=== PATIENT | male | born 1940 | race Caucasian/White ===

== ENCOUNTER 2024-05-20 10:35 | Emergency (ER) | payer OTHER, SELFPAY ==
[2024-05-20 10:39] VITALS: BP 113/73
--- NOTE | 2024-05-20 11:44 | ED.GENMED ---
History of Present Illness
General
Chief Complaint: Cough
Time Seen by Provider: 05/20/24 11:11
History of Present Illness
History of Present Illness:
Patient is a 83-year-old male with history of hypertension, hyperlipidemia presenting to the emergency department with a cough. Patient states that about a week ago he went to an urgent care for cough was given doxycycline as well as Tessalon
Perles with no relief in his symptoms. He had a chest x-ray did not show any pneumonia. He was told that there could be a lung disease and was to follow-up with outpatient CT scan.. He states that he has been having some congestion runny nose.
The cough is productive. No fevers. No chest pain. No shortness of breath. No recent sick contacts. He has not tried any decongestants or steam.
Past History
Past History
ED Past Medical History: None
ED Past Surgical History: None
Phy Exam
Physical Exam
Physical Exam:
GENERAL: in no acute distress
HEENT: normocephalic, extraocular movements intact, moist oral mucosa
NECK: normal inspection
RESPIRATORY: no respiratory distress, clear to auscultation bilaterally
CARDIOVASCULAR: regular rate and rhythm
ABDOMEN/: soft, non-distended, non-tender to palpation, no rebound or guarding
EXTREMITIES: non-tender, no edema/swelling
NEUROLOGIC: awake and alert, moves all extremities
SKIN: warm
Course
Orders/Labs/Results
Orders:
Orders
05/20/24 11:31
CR Chest - 2 Views Urgent
Comment:
Reason For Exam: cough
05/20/24 12:02
COVID-19 Antigen Urgent
Source: Nasal Swab
Influenza A+B Rapid Molecular Urgent
DEANA Source: Nasal Swab
Specimen Description:
Vital Signs
Initial and Last Documented VS:
Initial Vital Signs
Temp Pulse Resp BP Pulse Ox
98.4 F 83 18 113/73 95
05/20/24 10:39 05/20/24 10:39 05/20/24 10:39 05/20/24 10:39 05/20/24 10:39
Last Documented Vital Signs
Temp Pulse Resp BP Pulse Ox
98.4 F 74 18 103/68 96
05/20/24 10:39 05/20/24 11:56 05/20/24 11:56 05/20/24 11:56 05/20/24 11:56
MDM/Problems Addressed
Differential Diagnosis Includes:
Patient is a 83-year-old man presenting to the emergency department with a cough for the past week. Vitals are unremarkable and exam is reassuring. Certainly could be viral versus pneumonia. Will check COVID flu swab. Will obtain chest x-ray.
Patient advised on using honey decongestant such as Mucinex as well as steam for symptomatic relief. We did discuss obtaining a CT scan of the chest as it was advised at urgent care however after shared decision making patient. Will hold off.
*Critical Care Note
Total Time (30-74mins, 75-104mins- exclusive of procedures): Not Applicable
Update Note
Update Note:
Chest x-ray per my interpretation with peripheral lungs with increased interstitial markings. 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 I did discuss with pulmonology. They recommended outpatient follow-up.
No medications at this time. All questions answered. Will discharge at this time.
ED Attending Note
-
Portions of this chart may have been created with voice recognition software.� Occasional wrong word or��sound alike� substitutions may have occurred due to the inherent limitations of voice recognition software.
Discharge Plan
Departure
Patient Disposition: Home (Routine Discharge)
Date of Disposition: 05/20/24
Time of Disposition: 12:34
Patient with high blood pressure during this ER visit?: No
Discharge Problem:
Interstitial pneumonitis
Referrals:
Juan Luis Sin MD [Active] -
Juanjose Kerr MD [Family Provider] -
Interventions
Interventions:
*Risk Screen - Suicide Last Done: 05/20/24 10:39
*General Assessment Last Done: 05/20/24 10:39
*Neglect/Abuse Screening Last Done: 05/20/24 10:39
ED- Pulmonary Assessment Last Done: 05/20/24 11:56
Discharge Date and Time
Print Language: JORDANIAN
[2024-05-20 11:56] VITALS: BP 103/68
[2024-05-20 12:47] LABS: COVID-19 Antigen Negative (Negative)
[2024-05-20 12:53] VITALS: BP 114/69
== END 2024-05-20 12:56 | disposition home or self-care (01) ==
LOC: EMR 10:35
PROVIDERS: EMERGENCY PHYSICIAN Student in an Organized Health Care Education/Training Program; FAMILY PHYSICIAN Internal Medicine
DX: R09.89 Other specified symptoms and signs involving the circulatory and respiratory systems (principal); J84.89 Other specified interstitial pulmonary diseases; Z11.52 Encounter for screening for COVID-19; I10 Essential (primary) hypertension; E78.5 Hyperlipidemia, unspecified
CPT/HCPCS: 99283; 71046; 87502; 87811

== ENCOUNTER 2024-05-26 13:55 | Inpatient (IN) | payer OTHER, SELFPAY ==
[2024-05-26] VITALS (14 sets, daily range): BP systolic 99–132; BP diastolic 59–94; BMI 25.1; BMI 24.4
[2024-05-26 09:26] LABS: % Basophils 0.2 % (0-2); % Immature Granulocytes 0.6 % (0-0.5); % Lymphocytes 4.6 % (20.5-51.1); % Monocytes 4.5 % (1.7-9.3); % Neutrophils 90.1 % (42.2-75.2); Absolute Immature Granulocytes 0.1 10^3/uL (0-0.05); Absolute Lymphocytes 0.8 10^3/uL (1.2-3.4); Absolute Monocytes 0.8 10^3/uL (0.1-0.6); Absolute Neutrophils 15.8 10^3/uL (1.4-6.5); Hematocrit 43.9 % (39.0-52.0); Mean Corp Hgb Conc. 34.2 g/dL (33.0-37.0); Mean Corpuscular Hgb 29.4 pg (27.0-31.0); Mean Corpuscular Volume 86.1 fL (80.0-94.0); Nucleated Red Blood Cells % 0 % (-); Platelet Count 205 10^3/uL (130-400); Red Cell Dist. Width 12.7 % (11.5-14.5); White Blood Cell Count 17.5 10^3/uL (4.8-10.8)
[2024-05-26 09:39] LABS: ALT (SGPT) 21 U/L (0-50); AST (SGOT) 26 U/L (17-59); Albumin 4.1 g/dl (3.5-5.0); Alkaline Phosphatase 81 U/L (38-126); Blood Urea Nitrogen 35 mg/dl (9-20); Carbon Dioxide 25 mmol/L (22-30); Chloride 102 mmol/L (98-107); Glucose 148 mg/dl (70-99); Potassium 4.3 mmol/L (3.5-5.1); Sodium 138 mmol/L (135-145); Total Bilirubin 1.2 mg/dl (0.2-1.3); Total Protein 6.5 g/dl (6.3-8.2); eGFR 54.17
[2024-05-26 09:54] LABS: NT-proBNP 386 pg/ml; Troponin I 0.081 ng/ml
--- NOTE | 2024-05-26 11:33 | ED.GENMED ---
History of Present Illness
General
Chief Complaint: Breathing Problem
Source: patient, records and family
Time Seen by Provider: 05/26/24 10:24
History of Present Illness
History of Present Illness:
83-year-old male with past medical history of hypertension hyperlipidemia presenting the emergency department for reevaluation after being seen here 1 week ago for worsening cough and congestion, that initially caused patient to go to an urgent care
where he was prescribed doxycycline and Tessalon Perles but was taking this without any relief. Patient came to the ER last week where he had chest x-ray, COVID and flu testing done with the chest x-ray showing patient had moderate to severe
inflammatory interstitial pneumonitis, pulmonary was consulted at the time and recommended patient follow-up in the office as an outpatient which the patient was able to get scheduled for June 06. Patient states this morning he felt as he had
increased congestion and a fever with a Tmax of 100.6 he decided to come to the ER although he does note presently that his congestion seems to be resolved.
Past History
Past History
ED Past Medical History: HTN and Hypercholesterolemia
ED Past Surgical History: Appendectomy and Urological
Social History
Tobacco: Former smoker
Alcohol: None
Drug: None
Living: with family
Review of Systems
Review of Systems
All Other Systems: ROS reviewed and negative except as documented in HPI and ROS
Phy Exam
Physical Exam
Physical Exam:
GENERAL: Alert , in no apparent distress
EYE: conjunctiva clear
NECK: Supple
ENT: o/p clr, mmm.
CARDIAC: Regular rate and rhythm
LUNGS: Clear breath sounds bilaterally, no acute respiratory distress, no wheezes/rales/rhonchi
NEUROLOGICAL: Alert and oriented
SKIN: Warm and dry, skin intact.
MUSCULOSKELETAL: well perfused.
PSYCH: Normal and appropriate interaction.
Scores
Heart Failure Risk
Heart Failure Risk Score: Not Applicable
Heart Score for Chest Pain Patients
STEMI patient?: Not applicable
Withdrawal Assessment of Alcohol
Withdrawal Assessment Completed?: Not applicable
Sepsis
Sepsis Screening
Sepsis Assessment: Sepsis
Sepsis Screen
Sepsis Screen: Sepsis
Date: 05/26/24
Time: 13:12
Course
Orders/Labs/Results
Orders:
Orders
05/26/24 09:07
ECG [Electrocardiogram (*1)] Urgent
Reason for Study: Shortness of Breath
EKG- Treatment ONCE
05/26/24 09:16
Complete Blood Count/With Diff Urgent
Comprehensive Metabolic Panel Urgent
Pro-BNP [NT-proBNP] Urgent
Troponin I Urgent
05/26/24 10:33
CT Chest PE Study Urgent
Comment:
Reason For Exam: worsening SOB, cough
05/26/24 12:06
Cefepime HCl [Maxipime] 2,000 mg IV NOW STA
05/26/24 12:12
MethylPREDNISolone PF [Solu-Medrol Pf] 60 mg IV NOW STA
05/26/24 12:17
MethylPREDNISolone PF [Solu-Medrol Pf] 40 mg IV NOW STA
05/26/24 12:30
Lactic Acid Q4H
Comment: CANCEL 2nd LACTIC ACID IF 1st LACTIC ACID IS LESS THAN 2
Procalcitonin Routine
PCT Algorithmm Indication: Respiratory
Blood Culture Q30M
DEANA Source: Blood/Venous
Specimen Description:
Blood Culture Q30M
DEANA Source: Blood/Venous
Specimen Description:
05/26/24 16:15
Lactic Acid Q4H
Comment: CANCEL 2nd LACTIC ACID IF 1st LACTIC ACID IS LESS THAN 2
Abnormal Lab Results
05/26/24
09:16
WBC 17.5 H 10^3/uL
(4.8-10.8)
Abs Immat Gran (auto) 0.1 H 10^3/uL
(0-0.05)
Absolute Neuts (auto) 15.8 H 10^3/uL
(1.4-6.5)
Absolute Lymphs (auto) 0.8 L 10^3/uL
(1.2-3.4)
Absolute Monos (auto) 0.8 H 10^3/uL
(0.1-0.6)
Immature Gran % 0.6 H %
(0-0.5)
Neutrophils % 90.1 H %
(42.2-75.2)
Lymphocytes % 4.6 L %
(20.5-51.1)
BUN 35 H mg/dl
(9-20)
Glucose 148 H mg/dl
(70-99)
Troponin I 0.081 H* ng/ml
05/26/24 09:16
05/26/24 09:16
Vital Signs
Initial and Last Documented VS:
Initial Vital Signs
Temp Pulse Resp BP Pulse Ox
98.6 F 108 24 111/69 93
05/26/24 09:02 05/26/24 09:02 05/26/24 09:02 05/26/24 09:02 05/26/24 09:02
Last Documented Vital Signs
Temp Pulse Resp BP Pulse Ox
98.5 F 89 20 105/59 96
05/26/24 10:34 05/26/24 12:51 05/26/24 12:51 05/26/24 12:51 05/26/24 12:51
MDM/Problems Addressed
Differential Diagnosis Includes:
Continued exacerbation of pulmonary pneumonitis, pulmonary embolism, COVID/flu, pneumonia, other viral etiology
MDM/Problems Addressed:
83-year-old male presenting to the emergency department for evaluation of continued cough and chest/nasal congestion that has been ongoing for the last few weeks, no relief with doxycycline and Tessalon Perles. Had chest x-ray done a week ago
showing moderate to severe pulmonary interstitial pneumonitis and has an outpatient appointment scheduled for early May. No fever here and patient did not take any antipyretics prior to arrival. Labs were initiated in triage which does show a
slightly elevated troponin although there is no ischemic changes on his EKG. BNP is within normal limits. CTA of the chest ordered for further evaluation.
*Radiology
Radiology exam reviewed: radiology read reviewed
*Pulse Oximetry
Patient hypoxic: no
*EKG
Heart Rate: 98
Rate: normal
Rhythm: sinus
Interval: first degree heart block
*Bolt Header Interpretation
Rate: normal
Rhythm: sinus
*Critical Care Note
Total Time (30-74mins, 75-104mins- exclusive of procedures): Not Applicable
Data Reviewed
Review of Other/Old Records Reveals: Records and Radiology Studies
Source: patient and records
Patient Management
Discussion with other providers: Hospitalist and Doors Prefitter
Escalation/DeEscalation of care consider admission/obs:
Patient CT scan shows significant left upper and lower lung pneumonia in addition to the already known interstitial pneumonitis findings. Upon returning from CT scan patient's pulse ox did drop to 90% on room air so he was placed on 2 L via nasal
cannula for comfort. Due to multiple visits to the ER as well as the hypoxia and abnormal CT findings I did discuss the case with pulmonary who agrees patient should be admitted with IV antibiotics and is okay with patient receiving Solu-Medrol 40
mg every 8 hours IV. Hospitalist team is aware and accepts for continued evaluation and treatment.
ED Attending Note
-
Portions of this chart may have been created with voice recognition software.� Occasional wrong word or��sound alike� substitutions may have occurred due to the inherent limitations of voice recognition software.
Discharge Plan
Departure
Patient Disposition: Admit
Date of Disposition: 05/26/24
Time of Disposition: 12:18
Presentation/result/management discussed w/ accepting MD/DO: Hospitalist
Discharge Problem:
Pneumonia, Pneumonitis
Prescriptions:
No Action
amlodipine-benazepril 10-20 mg Capsule
1 cap PO DAILY
simvastatin [Zocor] 20 mg Tablet
20 mg PO HS
docusate sodium [Colace] 100 mg Capsule
100 mg PO DAILY
famotidine [Pepcid] 20 mg Tablet
20 mg PO DAILY
Referrals:
Unique Kerr CRNP [Family Provider] -
Interventions
Interventions:
*Risk Screen - Suicide Last Done: 05/26/24 10:34
*General Assessment Last Done: 05/26/24 10:34
*Neglect/Abuse Screening Last Done: 05/26/24 10:34
*ED- Fall Risk Assessment Last Done: 05/26/24 10:34
*ED COVID-19 Vaccine History Last Done: 05/26/24 10:34
ED- Cardiac Assessment Last Done: 05/26/24 10:34
ED- Pulmonary Assessment Last Done: 05/26/24 10:34
Discharge Date and Time
Print Language: TAMAZIGHT
--- NOTE | 2024-05-26 12:13 | EDRN ---
this RN noticed that the pts Sp02 dipped to 90%, this RN notified the provider Everett GONSALEZ and placed the pt on 3L NC, Sp02 now 95%, Everett GONSALEZ currently at the pts bedside
[2024-05-26] MEDS: MAXIPIME 2000 MG IV (12:30)
[2024-05-26] MEDS: SOLU-MEDROL PF 40 MG IV (12:30)
--- NOTE | 2024-05-26 12:32 | HPS.HSE ---
Family Physician
-
Family Physician: JENNY Griffith
Chief Complaint
-
sob
History of Present Illness
Patient 83 years old male with history hypertension, hyperlipidemia, GERD, came into the hospital cough and shortness of breath. Patient has been experiencing runny nose, cough, shortness of breath for over 3 weeks. He was in urgent care and also
the ER and x-rays had shown interstitial pneumonitis and was recommended to follow-up with pulmonary as outpatient. Patient continues to feel ill and having fevers and chills. This morning his temperature was up to 100.6 Fahrenheit. He continues
to have cough with white sputum production, increased congestion, and shortness of breath. Here in the ER he had a CT of the chest negative for PE but shows evidence of pneumonia in the left lung and also evidence of interstitial lung disease. In
terms of sick contacts he tells me he lives in a senior community and a lot of people have been sick lately. He was given supplemental oxygen and he was given broad-spectrum IV antibiotics. He was referred to hospitalist service for further
evaluation.
Medical History
Past Medical History
Past Medical History: Reports Other (Hypertension, hyperlipidemia.)
Past Surgical History: Reports None
Social History
Tobacco: Former Smoker
Alcohol: None
Drug: None
Family History
Family History: Not pertinent
Allergies / Home Medications
Allergies reflects when Allergies were last updated in [facility].
Home Medications with original date entered in [facility]
Allergy/Medication List:
Allergies
Allergy/AdvReac Type Severity Reaction Status Date / Time
No Known Allergies Allergy Verified 05/20/24 10:39
Home Medications
amlodipine 10 mg-benazepril 20 mg capsule 1 cap PO DAILY 05/26/24
docusate sodium 100 mg capsule (Colace) 100 mg PO DAILY 05/26/24
famotidine 20 mg tablet (Pepcid) 20 mg PO DAILY 05/26/24
simvastatin 20 mg tablet (Zocor) 20 mg PO HS 05/26/24
Review of Systems
-
A 12 point ROS was completed and negative except as noted: Yes
Physical Exam
Vital Signs
Vital Signs
Temp Pulse Resp BP Pulse Ox
98.5 F 88 23 105/59 91
05/26/24 10:34 05/26/24 12:00 05/26/24 12:00 05/26/24 12:00 05/26/24 12:00
Physical exam:
General: Acutely ill
HEENT: Normocephalic, Atraumatic and Moist Mucous Membranes
Respiratory: Bilateral coarse crackles and rhonchi; Negative Wheezes
Cardiac: Regular Rhythm and S1/S2
GI: Soft, Nontender and Nondistended
Musculoskeletal: No Clubbing, No Cyanosis and No Edema
Neuro: Awake, Alert and Oriented
Psych: Calm
Physical Exam
General: Other
Laboratory Results
-
05/26/24 09:16
05/26/24 09:16
Laboratory Results
Total Bilirubin 1.2 mg/dl (0.2-1.3) 05/26/24 09:16
AST 26 U/L (17-59) 05/26/24 09:16
ALT 21 U/L (0-50) 05/26/24 09:16
Alkaline Phosphatase 81 U/L (38-126) 05/26/24 09:16
Troponin I 0.081 ng/ml H* 05/26/24 09:16
Data Reviewed
-
CT Scan: Image Personally Visualized and interpreted
Lab Data: Labs Reviewed by me
Impression/Plan
-
IMPRESSION:
Patient 83 years old male with history of hypertension hyperlipidemia came into the hospital cough and shortness of breath. CT of the chest negative for PE but consistent with pneumonia and ILD. Patient increased risk of morbidity mortality due to
acute presentation and comorbidities therefore he will need to be treated in the hospital and monitor accordingly.
PLAN:
Acute respiratory insufficiency:
Oxygen supplementation
Bronchodilators as needed
Pneumonia:
Continue IV antibiotics
Would treat as community-acquired pneumonia with IV Rocephin and azithromycin (QTc 423 on EKG)
Sputum culture
Strep and Legionella antigen
ILD:
Start IV steroids, Dexa 4 mg IV q 8 hrs
Bronchodilators as needed
Would keep pulmonary referral as outpatient-discussed with patient and daughter at bedside.
Hypertension:
Continue amlodipine and benazepril
Monitor blood pressure and adjust medications accordingly
Hyperlipidemia:
Continue simvastatin 20 mg p.o. nightly
GERD:
Continue famotidine 20 mg p.o. daily
DVT prophylaxis:
Lovenox SQ
CODE STATUS:
DNR-confirmed with patient and family at bedside
Time spent 75 minutes
--- NOTE | 2024-05-26 12:51 | EDRN ---
hospitalist currently at the pts bedside
[2024-05-26 13:12] LABS: Procalcitonin 0.68 ng/ml (0.0-0.25)
[2024-05-26 14:58] LABS: Glucose - Point of Care 139 mg/dl (70-99)
--- NOTE | 2024-05-26 15:29 | EDRN ---
this RN called the receiving unit and notified them that paper report was going to be tubed up
[2024-05-26] MEDS: ZITHROMAX INFUSION 250 IV (16:42)
[2024-05-26] MEDS: LOVENOX 40 MG SC (18:42)
[2024-05-26] MEDS: DECADRON 4 MG IV (18:42)
--- NOTE | 2024-05-26 19:53 | PTCARENOTE ---
Recieved Pt from ED. AAOX3, VSS WNL, Oriented to unit.
[2024-05-26] MEDS: LIPITOR 10 MG PO (21:00)
[2024-05-27] VITALS (7 sets, daily range): BP systolic 97–115; BP diastolic 49–64; PULSE 84; O2SAT 94
[2024-05-27] MEDS: DECADRON 4 MG IV ×3 (01:41→17:37)
[2024-05-27 06:33] LABS: % Basophils 0.1 % (0-2); % Immature Granulocytes 0.7 % (0-0.5); % Lymphocytes 7.9 % (20.5-51.1); % Monocytes 1.4 % (1.7-9.3); % Neutrophils 89.9 % (42.2-75.2); Absolute Immature Granulocytes 0.1 10^3/uL (0-0.05); Absolute Lymphocytes 1.1 10^3/uL (1.2-3.4); Absolute Monocytes 0.2 10^3/uL (0.1-0.6); Absolute Neutrophils 12.4 10^3/uL (1.4-6.5); Hemoglobin 13.3 g/dL (13.0-18.0); Mean Corp Hgb Conc. 34.1 g/dL (33.0-37.0); Mean Corpuscular Hgb 29.5 pg (27.0-31.0); Mean Corpuscular Volume 86.5 fL (80.0-94.0); Mean Platelet Volume 9.6 fL (7.4-10.4); Nucleated Red Blood Cells % 0 % (-); Platelet Count 202 10^3/uL (130-400); Red Blood Cell Count 4.51 10^6/uL (4.70-6.10); Red Cell Dist. Width 12.8 % (11.5-14.5); White Blood Cell Count 13.8 10^3/uL (4.8-10.8)
[2024-05-27 07:10] LABS: Blood Urea Nitrogen 35 mg/dl (9-20); Carbon Dioxide 27 mmol/L (22-30); Chloride 105 mmol/L (98-107); Estimated Creatinine Clearance 47 ml/min; Glucose 198 mg/dl (70-99); Sodium 139 mmol/L (135-145); eGFR 59.63
[2024-05-27] MEDS: LOTREL 10 MG/20 MG 1 CAPSULE PO (08:46)
[2024-05-27] MEDS: COLACE 100 MG PO (08:46)
[2024-05-27] MEDS: STERILE WATER FOR INJECTION 10 ML IV (08:47)
[2024-05-27] MEDS: ROCEPHIN 1000 MG IV (08:47)
[2024-05-27] MEDS: PEPCID 20 MG PO (08:47)
--- NOTE | 2024-05-27 10:07 | W.PN.HOSP.TC ---
Today's Communication/Plan
-
see A/P
Assessment / Plan
Assessment / Plan
HPI: 83 year old male with history hypertension, hyperlipidemia, GERD, came into the hospital with cough and shortness of breath. Patient has been experiencing runny nose, cough, shortness of breath for over 3 weeks. He was in urgent care and also
the ER and x-rays had shown interstitial pneumonitis and was recommended to follow-up with pulmonary as outpatient. Patient continues to feel ill with fevers and chills (temperature was up to 100.6 Fahrenheit). He continues to have cough with
white sputum production, increased congestion, and shortness of breath.
Here in the ER he had a CT of the chest negative for PE but shows evidence of pneumonia in the left lung and also evidence of interstitial lung disease.
He lives in a senior community and a lot of people have been sick lately. He was given supplemental oxygen and he was given broad-spectrum IV antibiotics.
A/P:
# Acute respiratory insufficiency
Placed on 2L NC, cont and wean as tolerated
Bronchodilators as needed
# CAP
CT chest noted left upper lobe and left lower lobe increasing parenchymal opacity
Continue IV antibiotics with IV Rocephin and azithromycin
Check MRSA screen
Follow Sputum culture, blood cultures
Strep and Legionella antigens negative
COVID/Flu negative
# ILD:
Started IV steroids, Dexa 4 mg IV q 8 hrs, cont
Bronchodilators as needed
Would keep pulmonary referral as outpatient
# Hypertension:
Continue amlodipine and benazepril with holding parameter
Monitor blood pressure and adjust medications accordingly
# Hyperlipidemia:
Continue simvastatin 20 mg p.o. nightly
# GERD:
Continue famotidine 20 mg p.o. daily
DVT prophylaxis: Lovenox SQ
CODE STATUS: DNR-confirmed with patient and family at bedside
DW son at bedside
DW RN
total time spent 51 min
Anticipated Discharge: 24 - 48 hours
Subjective/Interval History
-
Date of Service: May 27, 2024
Objective Data
-
Labs:
Laboratory Results
05/27/24
05:47
WBC 13.8 H
Hgb 13.3
Hct 39.0
Plt Count 202
Sodium 139
Potassium 5.0
Chloride 105
Carbon Dioxide 27
BUN 35 H
Creatinine 1.2
Glucose 198 H
Calcium 9.0
Vital Signs:
Vital Signs
Temp Pulse Resp BP Pulse Ox
36.4 C 73 18 115/61 97
05/27/24 07:00 05/27/24 08:46 05/27/24 07:00 05/27/24 08:46 05/27/24 07:00
I&O
05/26/24 05/27/24 05/28/24
06:59 06:59 06:59
Intake Total 720 / 720
Balance 720 / 720
Review of Systems
-
History Source: Patient
Respiratory: Reports Other (congestion )
Physical Exam
-
General: Well Developed, Well Nourished, Comfortable, Respiratory Distress (mild) and Conversant
HEENT: Normocephalic, Atraumatic, Nose Appears Normal, Ears Appear Normal and Oxygen (2L NC)
Respiratory: Clear to Auscultation and Non Labored Respirations; Negative Wheezes or Accessory Resp Muscle Use
Cardiac: Regular Rhythm and S1/S2
GI: Soft, Nontender, Nondistended and Normal Bowel Sounds
Skin: Warm and Dry
Neuro: Awake, Alert, Oriented and AO x 3
Psych: Calm and Intact Judgement/Insight
Data Reviewed
-
CT Scan: Report Reviewed by me
Labs: Labs Reviewed by me
[2024-05-27] MEDS: ZITHROMAX INFUSION 250 IV (14:31)
--- NOTE | 2024-05-27 17:15 | CM ---
Alert awake oriented patient who lives alone in a 1 story home with 1 step to enter. He is independent in driving and in all activities of daily living.He was offered VN he declined need.
No VN hx / No SNF history
Pharmacy [facility]
PCP DR Kerr
PLAN Home Declined VN
[2024-05-27] MEDS: LOVENOX 40 MG SC (17:36)
[2024-05-27] MEDS: LIPITOR 10 MG PO (20:34)
[2024-05-28] MEDS: DECADRON 4 MG IV ×2 (02:21→09:50)
[2024-05-28 03:08] VITALS: BP 103/60
[2024-05-28 07:41] VITALS: BP 107/66
[2024-05-28 08:13] LABS: Hematocrit 41.5 % (39.0-52.0); Mean Corp Hgb Conc. 33.7 g/dL (33.0-37.0); Mean Corpuscular Volume 85.9 fL (80.0-94.0); Mean Platelet Volume 9.6 fL (7.4-10.4); Platelet Count 219 10^3/uL (130-400); Red Blood Cell Count 4.83 10^6/uL (4.70-6.10); White Blood Cell Count 15.2 10^3/uL (4.8-10.8)
[2024-05-28 08:38] LABS: Blood Urea Nitrogen 44 mg/dl (9-20); Calcium 9.1 mg/dl (8.4-10.2); Carbon Dioxide 26 mmol/L (22-30); Chloride 105 mmol/L (98-107); Estimated Creatinine Clearance 46 ml/min; Glucose 185 mg/dl (70-99); Magnesium 2.5 mg/dl (1.6-2.3); Potassium 4.2 mmol/L (3.5-5.1); Sodium 138 mmol/L (135-145); eGFR 59.26
[2024-05-28 08:41] VITALS: BP 107/66
[2024-05-28] MEDS: STERILE WATER FOR INJECTION 10 ML IV (08:43)
[2024-05-28] MEDS: ROCEPHIN 1000 MG IV (08:43)
[2024-05-28] MEDS: PEPCID 20 MG PO (08:43)
[2024-05-28] MEDS: LOTREL 10 MG/20 MG PO (08:43)
[2024-05-28] MEDS: COLACE 100 MG PO (08:43)
--- NOTE | 2024-05-28 09:21 | PN.CDI ---
CDI
- -
CDI:
Physician Documentation Request
Admit Date: 05/26/24 13:55
Dear Doctor Gaby,
Patient admitted for pneumonia.
ER Physician Documentation: 'a fever with a Tmax of 100.6'
Laboratory Tests
05/26/24 05/27/24
09:16 05:47
WBC 17.5 H 13.8 H
05/26/24
09:02 05/26/24
10:33 05/26/24
12:15
Pulse 108 93 92
05/26/24
09:02 05/26/24
12:00 05/26/24
12:45
Resp Rate 24 23 21
Please clarify which of the following most accurately describes the status of the patient's infection:
Sepsis, POA
- Systemic manifestations of infection, with 2 or more SIRS criteria which include:
- Fever >100.4 degrees F or hypothermia < 96.8 degrees F
- Leukocytosis - WBC > 12,000 or leukopenia - WBC < 4,000 or > 10% bands
- Tachycardia > 90 beats per minute
- Tachypnea - RR > 20 breaths per minute or PaCO2 , 32mmHg
Source: Merck Manual 2013
- Indicate the known or suspected organism
- Indicate the known or suspected underlying infection, such as pneumonia
- Indicate if a suspected bacterial infection of unknown source
- Indicate if associated with an implanted device such as a F/C, PICC line, orthopedic hardware, etc.
Localized Infection Only, Without Systemic Illness
- indicate the site/source, such as UTI, pneumonia etc.
Other
Use of terms such as suspected, likely, concern for, or probable (associated with a specific diagnosis that is being evaluated, monitored, or treated as if it exists) are acceptable and can be coded in the inpatient setting, when documented at the
time of discharge.
Thank you,
Shelby Roldan RN, BSN
CDI Specialist
Available via [facility] text
Please use your independent medical judgment in providing your response.
--- NOTE | 2024-05-28 10:12 | W.PN.HOSP.TC ---
Addendum entered and electronically signed by Teresa Griffin MD 05/28/24 13:30:
total DC time 38 min
Addendum entered and electronically signed by Teresa Griffin MD 05/28/24 12:53:
# Sepsis, POA
Original Note:
Today's Communication/Plan
-
DC today
Assessment / Plan
Assessment / Plan
HPI: 83 year old male with history hypertension, hyperlipidemia, GERD, came into the hospital with cough and shortness of breath. Patient has been experiencing runny nose, cough, shortness of breath for over 3 weeks. He was in urgent care and also
the ER and x-rays had shown interstitial pneumonitis and was recommended to follow-up with pulmonary as outpatient. Patient continues to feel ill with fevers and chills (temperature was up to 100.6 Fahrenheit). He continues to have cough with
white sputum production, increased congestion, and shortness of breath.
Here in the ER he had a CT of the chest negative for PE but shows evidence of pneumonia in the left lung and also evidence of interstitial lung disease.
He lives in a senior community and a lot of people have been sick lately. He was given supplemental oxygen and he was given broad-spectrum IV antibiotics.
A/P:
# Acute respiratory insufficiency, resolved
Placed on 2L NC, cont and wean as tolerated
Bronchodilators as needed
# CAP
CT chest noted left upper lobe and left lower lobe increasing parenchymal opacity
IV antibiotics IV Rocephin and azithromycin -> PO cefdinir and doxycycline for 3 more days
Check MRSA screen
blood cultures so far negative
Check sputum culture if able
Strep and Legionella antigens are negative, COVID/Flu negative
# ILD:
IV steroid Dexa 4 mg IV q 8 h -> prednisone taper outpatient
Bronchodilators as needed
Would keep pulmonary referral as outpatient
# Hypertension:
Continue amlodipine and benazepril with holding parameter
Monitor blood pressure and adjust medications accordingly
# Hyperlipidemia:
Continue simvastatin 20 mg p.o. nightly
# GERD:
Continue famotidine 20 mg p.o. daily
DVT prophylaxis: Lovenox SQ
CODE STATUS: DNR-confirmed with patient and family at bedside
Dispo: PT indicates no need
Anticipated Discharge: Today
Subjective/Interval History
-
Date of Service: May 28, 2024
Objective Data
-
Labs:
Laboratory Results
05/28/24
07:27
WBC 15.2 H
Hgb 14.0
Hct 41.5
Plt Count 219
Sodium 138
Potassium 4.2
Chloride 105
Carbon Dioxide 26
BUN 44 H
Creatinine 1.2
Glucose 185 H
Calcium 9.1
Vital Signs:
Vital Signs
Temp Pulse Resp BP Pulse Ox
36.7 C 75 20 107/66 97
05/28/24 07:41 05/28/24 08:43 05/28/24 07:41 05/28/24 08:43 05/28/24 07:41
I&O
05/27/24 05/28/24 05/29/24
06:59 06:59 06:59
Intake Total 720 / 720 180 / 180
Balance 720 / 720 180 / 180
Review of Systems
-
History Source: Patient
All other systems: Reviewed and negative
Physical Exam
-
General: Well Developed, Well Nourished, No Apparent Distress, Comfortable and Conversant
HEENT: Normocephalic, Atraumatic, Nose Appears Normal and Ears Appear Normal; Negative Oxygen
Respiratory: Clear to Auscultation and Non Labored Respirations; Negative Wheezes or Accessory Resp Muscle Use
Cardiac: Regular Rhythm and S1/S2
GI: Soft, Nontender, Nondistended and Normal Bowel Sounds
Skin: Warm and Dry
Neuro: Awake, Alert, Oriented and AO x 3
Psych: Calm and Intact Judgement/Insight
Data Reviewed
-
CT Scan: Report Reviewed by me
Labs: Labs Reviewed by me
[2024-05-28 11:09] VITALS: BP 116/74
--- NOTE | 2024-05-28 12:00 | CM ---
MD entered order for discharge.
Spoke with pt he said he was ready for discharge.
His son Nba will drive him home today .
Offered VN he picked [facility] . Liaison Antonio kaye notified of referral .
PLAN Home with [facility]
--- NOTE | 2024-05-28 12:54 | W.DCSUMMARY ---
Discharge Summary
Discharge Data
Date of Admission: 05/26/24
Date of Discharge: 05/28/24
-
Pending Results: No
Hospital Course
Principal Diagnosis:
Community-acquired pneumonia (CAP)
Resolved acute hypoxic respiratory insufficiency
Chronic Diagnoses:�
Interstitial lung disease
Hypertension
Hyperlipidemia on simvastatin
GERD
Consultations:�
None
Procedures:�
None
Clinical course:�
This is a 83 year old male with past medical history as stated above who presented with cough, shortness of breath and fever.
Problem 1:
CAP.
His CT chest noted left upper lobe and left lower lobe increasing parenchymal opacity.
He received IV antibiotics IV Rocephin and azithromycin while in the hospital, and was discharged with oral cefdinir and doxycycline for 3 more days (total 5 days).
His Strep and Legionella antigens were negative, COVID/Flu were also negative.
Problem 2:
Acute acute respiratory insufficiency, resolved.
He was initially placed on 2 L nasal cannula which was weaned off back to room air.
Problem 3:
ILD.
He was covered with IV steroid dexamethasone 4 mg every 8 hours while in the hospital.
He can continue with prednisone taper outpatient (start 40 mg and continue for 3 days, decrease 10 mg every 3 days until off).
He can follow-up with pulmonary outpatient.
As for the rest of his medical problems, they were stable during his hospital stay.
Discharge Plan
-
Patient Disposition: Home with Home Care
Discharge Diagnosis/Procedures: Community acquired pneumonia (CT chest noted left upper lobe and left lower lobe increasing parenchymal opacity);
resolved acute respiratory insufficiency
Condition: Good
Diet: As tolerated
Activity: As tolerated
Driving Restrictions: As prior to admission
Others Tests: CXR in 4-6 weeks with pulm or PCP
Referrals:
Unique Kerr CRNP [Family Provider] - in less than 1 week
Additional Discharge Medication Instructions: Continue to complete antibiotics Cefdinir 300 mg twice daily and doxycycline 100 mg twice daily for 3 more days.
Avoid the sun or dairy product (milk/cheese etc) while on doxycycline
Continue prednisone taper as instructed.
Prescriptions:
New
cefdinir 300 mg capsule
300 mg PO BID 3 Days Qty: 6 0RF
doxycycline hyclate 100 mg capsule
100 mg PO BID 3 Days Qty: 6 0RF
guaifenesin [Mucinex] 1,200 mg tablet extended release 12hr
1,200 mg PO BID PRN (Reason: Congestion) Qty: 20 0RF
prednisone 10 mg Tablet
See Rx Instructions .ROUTE .COMPLEX Qty: 30 0RF
Rx Instructions:
Take By Mouth:
40 mg daily x3 days, 30 mg daily x3 days,
20 mg daily x3 days, 10 mg daily x3 days.
Continued
amlodipine-benazepril 10-20 mg Capsule
1 cap PO DAILY
simvastatin [Zocor] 20 mg Tablet
20 mg PO HS
docusate sodium [Colace] 100 mg Capsule
100 mg PO DAILY
famotidine [Pepcid] 20 mg Tablet
20 mg PO DAILY
Discharge Orders:
Discharge Patient (As Directed); Ordered 05/28/24
Ordered By: Teresa Griffin
Discharge Date and Time
Discharge Date/Time: 05/28/24 11:34
Print Language: [id number]
--- NOTE | 2024-05-28 13:05 | VNURNOTE ---
[facility] Liaison unable to meet with patient, he already was discharged home. [facility] referral completed in [facility]
== END 2024-05-28 11:34 | disposition home health service (06) | DRG 871 ==
LOC: 4 EAST ACU 13:55
PROVIDERS: Internal Medicine; Physician Assistant Medical; ADMITTING PHYSICIAN Hospitalist; ATTENDING PHYSICIAN Internal Medicine; EMERGENCY PHYSICIAN Emergency Medicine; FAMILY PHYSICIAN Nurse Practitioner Adult Health
DX: A41.9 Sepsis, unspecified organism (principal); J18.9 Pneumonia, unspecified organism; I10 Essential (primary) hypertension; E78.00 Pure hypercholesterolemia, unspecified; J98.4 Other disorders of lung; K21.9 Gastro-esophageal reflux disease without esophagitis; R06.89 Other abnormalities of breathing; Z60.2 Problems related to living alone; Z66 Do not resuscitate; Z87.891 Personal history of nicotine dependence
CPT/HCPCS: 71275; 80048; 80053; 82962; 83605; 83735; 83880; 84145; 84484; 85025; 85027; 87040; 87070; 87449; 87899; 93005; 96374; 96375; 97161; 99285; Q9967

== ENCOUNTER → 2024-08-20 14:11 | Outpatient (REF) | payer OTHER, SELFPAY | LOC: HWRAD 14:11 | PROVIDERS: ATTENDING PHYSICIAN Internal Medicine Critical Care Medicine; FAMILY PHYSICIAN Internal Medicine | DX: Z87.01 Personal history of pneumonia (recurrent) (principal) | CPT/HCPCS: 71250 ==

== ENCOUNTER 2025-02-23 11:33 | Emergency (ER) | payer OTHER, SELFPAY ==
[2025-02-23 11:43] VITALS: BP 130/68
[2025-02-23 12:22] LABS: Hematocrit 47.2 % (39.0-52.0); Hemoglobin 15.8 g/dL (13.0-18.0); Mean Corp Hgb Conc. 33.5 g/dL (33.0-37.0); Mean Corpuscular Volume 88.7 fL (80.0-94.0); Nucleated Red Blood Cells % 0 % (-); Platelet Count 171 10^3/uL (130-400); Red Cell Dist. Width 12.9 % (11.5-14.5)
[2025-02-23 12:37] LABS: COVID-19 Antigen Negative (Negative)
[2025-02-23 12:42] LABS: ALT (SGPT) 21 U/L (0-50); AST (SGOT) 24 U/L (17-59); Albumin 4.8 g/dl (3.5-5.0); Alkaline Phosphatase 74 U/L (38-126); Blood Urea Nitrogen 30 mg/dl (9-20); Calcium 9.7 mg/dl (8.4-10.2); Carbon Dioxide 25 mmol/L (22-30); Chloride 101 mmol/L (98-107); Glucose 242 mg/dl (70-99); Potassium 4.7 mmol/L (3.5-5.1); Sodium 137 mmol/L (135-145); Total Protein 7.4 g/dl (6.3-8.2); eGFR 45.34
--- NOTE | 2025-02-23 15:25 | ED.GENMED ---
History of Present Illness
General
Chief Complaint: Cold/Flu/URI Symptoms
Source: patient
Time Seen by Provider: 02/23/25 15:12
History of Present Illness
History of Present Illness:
84-year-old male presented emergency room complaining of cough, congestion, malaise and feeling somewhat short of breath this morning. Patient states a lot of the symptoms have resolved significantly. He does not feel short of breath. He feels
'great' right now. He does have a history of pulmonary fibrosis. He is known to Dr. Coombs. He does not use nebulizers or inhalers at home. He is tolerating oral intake. No nausea or vomiting.
Past History
Past History
ED Past Medical History: HTN and Hypercholesterolemia
ED Past Surgical History: Appendectomy and Urological
Social History
Tobacco: Former smoker
Alcohol: None
Drug: None
Living: with family
Phy Exam
Physical Exam
Physical Exam:
General: Awake, Alert, Oriented X3. No acute distress. Appears actually no current relatively healthy for stated age
Vitals: Mildly tachycardic in triage. Repeat heart rate for me 85. Pulse ox 97%
Head: Atraumatic
Eyes: Pupils equal, EOMI
Throat: Airway intact, no exudates
Neck: Trachea midline
Lungs: Rhonchi noted right lateral lung field
Heart: Regular rate, no murmurs
Abd: Soft, Nontender, No pulsatile mass
Neuro: Nonfocal
Skin: Warm, dry, no rash
Extremities: pulses equal b/l, no edema
Sepsis
Sepsis Screening
Sepsis Assessment: Sepsis Ruled Out
Sepsis Screen
Sepsis Screen: Sepsis Ruled Out
Date: 02/23/25
Time: 22:14
Course
Orders/Labs/Results
Orders:
Orders
02/23/25 11:34
Chest [CR Chest - 2 Views ] Urgent
Comment:
Reason For Exam: cough
02/23/25 11:44
EKG [Electrocardiogram (*1)] Urgent
Reason for Study: Shortness of Breath
02/23/25 11:45
EKG- Treatment ONCE
02/23/25 11:55
CBC/With Diff [Complete Blood Count/With Diff] Urgent
CMP [Comprehensive Metabolic Panel] Urgent
COVID-19 Antigen Urgent
Source: Nasal Swab
Influenza A+B Rapid Molecular Urgent
DEANA Source: Nasal Swab
Specimen Description:
02/23/25 15:33
LevoFLOXacin [Levaquin] 500 mg PO NOW STA
Abnormal Lab Results
02/23/25
11:55
WBC 17.5 H 10^3/uL
(4.8-10.8)
Abs Immat Gran (auto) 0.1 H 10^3/uL
(0-0.05)
Absolute Neuts (auto) 15.3 H 10^3/uL
(1.4-6.5)
Absolute Monos (auto) 0.9 H 10^3/uL
(0.1-0.6)
Neutrophils % 87.4 H %
(42.2-75.2)
Lymphocytes % 7.0 L %
(20.5-51.1)
BUN 30 H mg/dl
(9-20)
Creatinine 1.5 H mg/dL
(0.7-1.3)
Glucose 242 H mg/dl
(70-99)
02/23/25 11:55
02/23/25 11:55
Vital Signs
Initial and Last Documented VS:
Initial Vital Signs
Temp Pulse Resp BP Pulse Ox
98.9 F 111 24 130/68 94
02/23/25 11:43 02/23/25 11:43 02/23/25 11:43 02/23/25 11:43 02/23/25 11:43
Last Documented Vital Signs
Temp Pulse Resp BP Pulse Ox
98.9 F 111 24 130/68 94
02/23/25 11:43 02/23/25 11:43 02/23/25 11:43 02/23/25 11:43 02/23/25 15:29
MDM/Problems Addressed
Differential Diagnosis Includes:
Pneumonia, acute bronchitis, exacerbation of COPD
MDM/Problems Addressed:
Patient presents with cough, fever. Chest x-ray shows right middle lobe elevate. Patient looks quite good right now. He is not requiring any supplemental oxygen. He is tolerating oral intake. Overall this point nontoxic.. Discharged on
Levaquin. Close follow-up return if getting any worse.
*Radiology
Radiology exam reviewed: radiology read reviewed
*Pulse Oximetry
SaO2: 94
Oxygen Mode of Delivery: Room air
Patient hypoxic: no
*EKG
Interpreted by ED Provider?: Yes
Interpretation: normal
Heart Rate: 97
Rate: normal
Rhythm: sinus
Interval: first degree heart block
QRS Pattern: normal QRS
Ischemia: no ischemia
*[employer]ist Interpretation
Rate: normal
Interpretation: normal
Rhythm: sinus
*Critical Care Note
Total Time (30-74mins, 75-104mins- exclusive of procedures): Not Applicable
ED Attending Note
-
Portions of this chart may have been created with voice recognition software.� Occasional wrong word or��sound alike� substitutions may have occurred due to the inherent limitations of voice recognition software.
Discharge Plan
Departure
Patient Disposition: Home (Routine Discharge)
Date of Disposition: 02/23/25
Time of Disposition: 15:33
Patient with high blood pressure during this ER visit?: No
Condition: Good
Discharge Problem:
Pneumonia
Instructions: Pneumonia in adults
Prescriptions:
New
levofloxacin 500 mg tablet
500 mg PO DAILY 5 Days Qty: 5 0RF
No Action
amlodipine-benazepril 10-20 mg Capsule
1 cap PO DAILY
simvastatin [Zocor] 20 mg Tablet
20 mg PO HS
docusate sodium [Colace] 100 mg Capsule
100 mg PO DAILY
famotidine [Pepcid] 20 mg Tablet
20 mg PO DAILY
cefdinir 300 mg capsule
300 mg PO BID 3 Days Qty: 6 0RF
doxycycline hyclate 100 mg capsule
100 mg PO BID 3 Days Qty: 6 0RF
guaifenesin [Mucinex] 1,200 mg tablet extended release 12hr
1,200 mg PO BID PRN (Reason: Congestion) Qty: 20 0RF
prednisone 10 mg Tablet
See Rx Instructions .ROUTE .COMPLEX Qty: 30 0RF
Rx Instructions:
Take By Mouth:
40 mg daily x3 days, 30 mg daily x3 days,
20 mg daily x3 days, 10 mg daily x3 days.
Activity Restrictions/Additional Instructions:
Your x-ray shows that you do have pneumonia. I have given you a dose of an antibiotic here. I have sent a prescription for the antibiotic, Levaquin, which she should take once a day. Return if you are feeling worse in any way. Follow-up with
[facility] and your primary care doctor.
Interventions
Interventions:
*General Assessment Last Done: 02/23/25 11:43
*Neglect/Abuse Screening Last Done: 02/23/25 11:43
[facility] Risk Assessment Tool Last Done: 02/23/25 15:56
*Risk Screen - Suicide (C-SSRS) Last Done: 02/23/25 11:43
*Nursing Disposition Last Done: 02/23/25 15:56
ED- Pulmonary Assessment Last Done: 02/23/25 15:55
Discharge Date and Time
Discharge Date/Time: 02/23/25 15:57
Print Language: UKRAINIAN
[2025-02-23] MEDS: LEVAQUIN 500 MG PO (15:47)
== END 2025-02-23 15:57 | disposition home or self-care (01) ==
LOC: EMR 11:33
PROVIDERS: Emergency Medicine; EMERGENCY PHYSICIAN Emergency Medicine; FAMILY PHYSICIAN Internal Medicine
DX: J18.9 Pneumonia, unspecified organism (principal); Z11.52 Encounter for screening for COVID-19; I44.0 Atrioventricular block, first degree; I10 Essential (primary) hypertension; E78.00 Pure hypercholesterolemia, unspecified; J84.10 Pulmonary fibrosis, unspecified; Z87.891 Personal history of nicotine dependence
CPT/HCPCS: 99283; 71046; 80053; 85025; 87502; 87811; 93005